=== PATIENT | female | born 1960 | race Caucasian/White ===

== ENCOUNTER 2017-08-11 23:07 | Emergency (ER) | payer MEDICARE, MEDICAID ==
[~2017-08-11] VITALS: Ht 167.6 cm; Wt 149.7 kg
[~2017-08-11 23:07] MED LIST: PREDNISONE 20 M20 MG PO; PROAIR HFA8.5 GM INH; PROMETHAZINE V473 ML PO; TESSALON PERLE100 MG PO; ZPAK PO
[2017-08-11] MEDS ORDERED: SYNTHROID175 MCG (23:17)
[2017-08-11] MEDS ORDERED: OMEPRAZOLE20 M2 (23:17)
[2017-08-11] MEDS ORDERED: GABAPENTIN 100100 MG (23:18)
[2017-08-12 00:39] VITALS: BP 146/60
== END 2017-08-12 00:40 | disposition home or self-care (01) ==
LOC: M.ERS 23:07
DX: J02.9 Acute pharyngitis, unspecified (principal); J45.909 Unspecified asthma, uncomplicated; Z88.2 Allergy status to sulfonamides; Z90.49 Acquired absence of other specified parts of digestive tract; Z98.890 Other specified postprocedural states

== ENCOUNTER 2018-08-28 18:59 | Emergency (ER) | payer OTHER, MEDICAID ==
[~2018-08-28] VITALS: Ht 167.6 cm; Wt 167.8 kg
[~2018-08-28 18:59] MED LIST changes: +GABAPENTIN 100100 MG; +OMEPRAZOLE20 M2; +SYNTHROID175 MCG
[2018-08-28] MEDS ORDERED: PREDNISONE50 MG PO (19:54)
[2018-08-28] MEDS ORDERED: VENTOLIN HFA 1818 GM INH (19:54)
[2018-08-28] MEDS ORDERED: LEVAQUIN 750 M750 MG PO (19:54)
[2018-08-28 20:19] VITALS: BP 142/56
--- NOTE | 2018-08-29 12:31 | EKG ---
[place] [address] ELECTROCARDIOGRAM REPORT Name: EDWARDKEVIN CHERRY Room: [facility]#: [id number] Admission: 08/28/18 Attend Phys: Discharge: 08/28/18 Date of : 60 Report #: [id number] THIS REPORT FOR: //name// [facility] ED Test Date: 2018-08-28 Test Time: 19:17:56 Pat Name: KEVIN LEON Department: Room: Gender: F Production Team Member: Goldie LOPEZ : 1960 Requested By: Cathy Saha Order Number: [id number] MD: Celestino Bowman Measurements Intervals [place] Rate: 89 P: 33 PA: 147 QRS: 16 QRSD: 104 T: 32 QT: 360 QTc: 439 Interpretive Statements Sinus rhythm Low voltage, precordial leads No previous ECG available for comparison Electronically Signed On 08-29-2018 12:30:57 INST[employer]ER APPRENTICE by Celestino Bowman [email or web address] <ELECTRONICALLY SIGNED> By: Celestino Bowman MD, [facility] 08/29/18 1230 16 16 Celestino Bowman MD, FACC /EPI
== END 2018-08-28 20:18 | disposition home or self-care (01) ==
LOC: M.ERS 18:59
DX: J84.10 Pulmonary fibrosis, unspecified (principal); J44.9 Chronic obstructive pulmonary disease, unspecified; Z98.890 Other specified postprocedural states; Z90.49 Acquired absence of other specified parts of digestive tract; F17.200 Nicotine dependence, unspecified, uncomplicated; Z88.2 Allergy status to sulfonamides

== ENCOUNTER 2021-06-01 18:37 | Emergency (ER) | payer OTHER, MEDICAID ==
[~2021-06-01] VITALS: Ht 167.6 cm; Wt 181.4 kg
[~2021-06-01 18:37] MED LIST changes: +LEVAQUIN 750 M750 MG PO; +LEVOXYL175 MCG PO; +PREDNISONE50 MG PO; -SYNTHROID175 MCG; +VENTOLIN HFA 1818 GM INH
[2021-06-01 19:07] VITALS: BP 141/60
[2021-06-01] MEDS ORDERED: OMEPRAZOLE 20 M20 M1 PO (19:11)
[2021-06-01] MEDS ORDERED: LISINOPRIL10 MG PO (19:11)
[2021-06-01] MEDS ORDERED: LIPITOR10 MG PO (19:11)
[2021-06-01] MEDS ORDERED: LASIX 10 MG/10 MG/M1 (19:11)
[2021-06-01] MEDS ORDERED: CARBIDOPA-LEVO1 EAC5 PO (19:11)
== END 2021-06-01 20:19 | disposition left against medical advice (07) ==
LOC: M.ERS 18:37
DX: M27.2 Inflammatory conditions of jaws (principal); Z53.21 Procedure and treatment not carried out due to patient leaving prior to being seen by health care provider

== ENCOUNTER 2021-06-03 13:00 | Inpatient (IN) | payer OTHER, MEDICAID ==
[~2021-06-03] VITALS: Ht 167.6 cm; Wt 191.0 kg
[~2021-06-03 13:00] MED LIST changes: +CARBIDOPA-LEVO1 EAC5 PO; +LASIX 10 MG/10 MG/M1; +LIPITOR10 MG PO; +LISINOPRIL10 MG PO; +OMEPRAZOLE 20 M20 M1 PO
[2021-06-03 13:11] VITALS: BP 120/84
[2021-06-03 13:49] LABS: ABSOLUTE EOSINOPHILS 0.2 thou/uL (0.0-0.7); ABSOLUTE MONOCYTES 0.5 thou/uL (0.0-1.2); BASOPHILS 0.5 %; EOSINOPHILS 2.8 %; HEMATOCRIT 35.3 % (37.0-47.0); HEMOGLOBIN 11.7 gm/dL (12.0-15.0); LYMPHOCYTES 12.8 %; MCH 26.6 pg (26.0-34.0); MCHC 33.1 g/dL (28.0-37.0); MCV 80.5 fL (80.0-100.0); MONOCYTES 6.8 %; MPV 8.1 fl. (7.2-11.1); NUCLEATED RBCS 0 /100WBC; PLATELET COUNT* 151 thou/uL (150-400); POLYS 77.1 %; RBC 4.38 mil/uL (4.20-5.00); WBC 7.8 thou/uL (4.0-11.0)
[2021-06-03 13:57] LABS: CALCIUM 9.1 mg/dL (8.5-10.1); CREATININE 0.8 mg/dL (0.6-1.3); POTASSIUM 3.6 mmol/L (3.5-5.1)
[2021-06-03 14:13] LABS: ALBUMIN 2.7 g/dL (3.4-5.0); TOTAL PROTEIN 7.4 g/dL (6.4-8.2)
[2021-06-03] MEDS ORDERED: HYDROCODON-ACE1 EAC7 PO (15:11)
[2021-06-03 15:46] LABS: URINE BILIRUBIN NEGATIVE (Negative); URINE BLOOD 3+ (Negative); URINE CLARITY CLEAR; URINE COLOR DARK YELLOW; URINE GLUCOSE-RANDOM NEGATIVE (Negative); URINE KETONES NEGATIVE (Negative); URINE LEUKOCYTES-REFLEX NEGATIVE (Negative); URINE NITRITE-REFLEX NEGATIVE (Negative); URINE PROTEIN TRACE (Negative)
[2021-06-03 15:53] LABS: CASTS None Seen /LPF (None Seen); MUCUS None Seen strn/LPF (None Seen); SQUAMOUS >10 Many /LPF (0-3); URINE RBC >20 Many /HPF (0-2); YEAST-REFLEX Present (None Seen)
[2021-06-03 15:54] LABS: CRYSTALS None Seen /LPF (None Seen); URINE WBC-REFLEX 0-5 Rare /HPF (0-5)
[2021-06-03 20:11] VITALS: BP 149/79
[2021-06-03 20:49] VITALS: BP 183/83
[2021-06-03] MEDS ORDERED: AMBIEN5 MG PO (22:16)
[2021-06-04 08:00] VITALS: BP 147/63
[2021-06-04 15:34] VITALS: BP 154/51
[2021-06-05 05:18] LABS: HEMATOCRIT 32.1 % (37.0-47.0); HEMOGLOBIN 10.5 gm/dL (12.0-15.0); MCH 26.6 pg (26.0-34.0); MCHC 32.8 g/dL (28.0-37.0); MCV 81.2 fL (80.0-100.0); MPV 7.8 fl. (7.2-11.1); RBC 3.96 mil/uL (4.20-5.00); WBC 5.6 thou/uL (4.0-11.0)
[2021-06-05 05:33] LABS: CALCIUM 8.7 mg/dL (8.5-10.1); CREATININE 0.7 mg/dL (0.6-1.3); POTASSIUM 3.9 mmol/L (3.5-5.1)
[2021-06-05 07:58] VITALS: BP 106/44
[2021-06-05 08:00] VITALS: BP 106/44
[2021-06-05 15:44] VITALS: BP 120/49
[2021-06-05 20:00] VITALS: BP 135/54
[2021-06-05 23:57] VITALS: BP 152/59
[2021-06-06 04:24] LABS: HEMATOCRIT 33.8 % (37.0-47.0); MCH 26.3 pg (26.0-34.0); MCHC 32.6 g/dL (28.0-37.0); MCV 80.8 fL (80.0-100.0); MPV 7.9 fl. (7.2-11.1); NUCLEATED RBCS 0 /100WBC; PLATELET COUNT* 126 thou/uL (150-400); RBC 4.18 mil/uL (4.20-5.00); RDW-CV 17.1 % (10.5-14.5); WBC 6.1 thou/uL (4.0-11.0)
[2021-06-06 04:42] LABS: CALCIUM 8.7 mg/dL (8.5-10.1); CREATININE 0.8 mg/dL (0.6-1.3); POTASSIUM 4.1 mmol/L (3.5-5.1)
[2021-06-06 05:49] LABS: ABSOLUTE LYMPHOCYTES 0.4 thou/uL (0.8-5.3); ABSOLUTE MONOCYTES 0.1 thou/uL (0.0-1.2); ABSOLUTE NEUTROPHILS 5.6 thou/uL (1.6-8.1); ANISOCYTOSIS 1+; PLATELET ESTIMATE DECREASED; POIKILOCYTOSIS 1+
[2021-06-06 08:00] VITALS: BP 107/43
[2021-06-06 13:33] VITALS: BP 107/43
[2021-06-06 15:34] VITALS: BP 125/52
[2021-06-06 19:35] VITALS: BP 141/53
[2021-06-07 03:51] VITALS: BP 141/47
[2021-06-07 08:00] VITALS: BP 115/70
[2021-06-07 09:48] VITALS: BP 115/70
[2021-06-07] MEDS ORDERED: DOXYCYCLINE 10100 M2 PO (17:57)
== END 2021-06-07 18:20 | disposition home or self-care (01) | DRG 603 ==
LOC: M.ERS 13:00 → M.3W 15:59 → M.TBA-ER 15:59 → M.3W 20:24
PROVIDERS: Emergency Medicine Emergency Medical Services; Family Medicine; Surgery; ADMIT Internal Medicine; ATTEND Internal Medicine
PROC: 0J910ZZ Drainage of Face Subcutaneous Tissue and Fascia, Open Approach (ICD-10-PCS; principal; 2021-06-04)
DX: L03.211 Cellulitis of face (principal); K12.2 Cellulitis and abscess of mouth; R65.10 Systemic inflammatory response syndrome (SIRS) of non-infectious origin without acute organ dysfunction; E87.2 Acidosis; Z20.822 Contact with and (suspected) exposure to COVID-19; J45.909 Unspecified asthma, uncomplicated; J44.9 Chronic obstructive pulmonary disease, unspecified; K74.60 Unspecified cirrhosis of liver; K21.9 Gastro-esophageal reflux disease without esophagitis; E03.9 Hypothyroidism, unspecified; L98.9 Disorder of the skin and subcutaneous tissue, unspecified; M81.0 Age-related osteoporosis without current pathological fracture; F15.10 Other stimulant abuse, uncomplicated; Z89.421 Acquired absence of other right toe(s); Z90.49 Acquired absence of other specified parts of digestive tract; Z88.2 Allergy status to sulfonamides; Z86.19 Personal history of other infectious and parasitic diseases; Z86.711 Personal history of pulmonary embolism